=== PATIENT | male | born 1950 | race Hispanic/Latino ===

== ENCOUNTER → 2020-11-13 | Outpatient (CLI) | payer MEDICARE ==
[~2020-11-13] MED LIST: IOPAMIDOL 370 MG/ML 200 ML INFUS..BTL INJ ONE; SODIUM CHLORIDE 0.9% 250ML 250 ML ONE
[2020-11-13 10:44] LABS: BLOOD UREA NITROGEN 15 mg/dL (7-26); BUN/CREATININE RATIO 16 (6-25); CREATININE, SERUM 0.96 mg/dL (0.72-1.25); EST GLOMERULAR FILTRATION RATE > 60 ML/MIN (60-)
== END ==
LOC: CT 09:47
PROVIDERS: ATTEND Urology
DX: R31.21 Asymptomatic microscopic hematuria (principal)
CPT/HCPCS: 36415; 74178; 82565; 84520; J7050; Q9967

== ENCOUNTER 2025-03-15 09:02 | Inpatient (IN) | payer MEDICARE ==
[2025-03-13 14:58] LABS: BASOPHILS % 0.6 % (0.0-1.0); EOSINOPHILS % 2.5 % (0.0-6.0); LYMPHOCYTES % 31.4 % (18.0-39.1); MONOCYTES % 9.8 % (4.4-11.3); NEUTROPHILS % 55.6 % (38.7-80.0); RED CELL DISTRIBUTION WIDTH 12.9 % (11.7-14.4)
[2025-03-13 15:17] LABS: EST GLOMERULAR FILTRATION RATE 73.0 ML/MIN (>=60)
[~2025-03-15] VITALS: Ht 175.3 cm; Wt 81.6 kg
[~2025-03-15 09:02] MED LIST changes: +AMLODIPINE BESYL5 MG PO; +AMOX TR-K CLV1 EAC1 PO; +ATORVASTATIN CA20 MG PO; +CETIRIZINE HCL10 MG; +D3-5000125 MCG; +FENOFIBRATE67 MG; +FINASTERIDE5 MG PO; +FLOMAX0.4 MG PO; -IOPAMIDOL 370 MG/ML 200 ML INFUS..BTL INJ ONE; +METFORMIN HCL500 MG PO; -SODIUM CHLORIDE 0.9% 250ML 250 ML ONE; +TRICOR48 MG PO; +VITAMIN C1000 MG PO; +XARELTO20 MG PO
[2025-03-15] MEDS ORDERED: LIDOCAINE HCL 2% LOCAL INJ 5 ML SDV VIAL INJ ONE (09:25)
[2025-03-15] MEDS ORDERED: FENTANYL CITRATE/PF 100MCG/2 ML INJ ONE (09:25)
[2025-03-15] MEDS ORDERED: PROPOFOL IV EMULSION 10 MG/ML 20 ML VIAL ONE (09:25)
[2025-03-15] MEDS ORDERED: ONDANSETRON HCL INJ 2MG/ML 2ML 2 MG/ML VIAL ONE (09:25)
[2025-03-15] MEDS ORDERED: ROCURONIUM BROMIDE 1 ML IV ONE ×2 (09:25→11:01)
[2025-03-15] MEDS ORDERED: KETOROLAC TROMETHAMINE 30 MG/ML VIAL ONE (09:33)
[2025-03-15] MEDS: SODIUM CHLORIDE 0.9% 1000ML 1,000 ML ONE ×2 (10:06→17:19)
[2025-03-15] MEDS: GENTAMICIN 80MG/NS 100 ML 200 ML IV ONE (10:08)
[2025-03-15] MEDS: LEVOFLOXACIN 500MG/D5W 100ML 100 ML IV ONE (10:08)
[2025-03-15] MEDS ORDERED: GLYCOPYRROLATE INJ 0.2 MG/ML VIAL ONE (10:38)
[2025-03-15] MEDS ORDERED: DIPHENHYDRAMINE HCL INJ 50 MG/ML VIAL IM PRN (10:45)
[2025-03-15] MEDS ORDERED: ONDANSETRON HCL INJ 2MG/ML 2ML 2 MG/ML VIAL IV PRN (10:45)
[2025-03-15] MEDS ORDERED: ACETAMINOPHEN 1000 MG/100 ML IV PRN (10:45)
[2025-03-15] MEDS ORDERED: SUGAMMADEX SODIUM 200 MG/2 ML VIAL IV ONE (11:50)
[2025-03-15] MEDS: GENTAMICIN 80MG/NS 100 ML 100 ML IV SCH ×2 (14:00→18:17)
[2025-03-15 15:44] LABS: BASOPHILS % 0.2 % (0.0-1.0); EOSINOPHILS % 0.2 % (0.0-6.0); LYMPHOCYTES % 8.5 % (18.0-39.1); MONOCYTES % 5.4 % (4.4-11.3); NEUTROPHILS % 85.4 % (38.7-80.0); RED CELL DISTRIBUTION WIDTH 13.0 % (11.7-14.4)
[2025-03-15 16:02] VITALS: BP 131/67; PULSE 70; RESP 19; TEMP 97.6; O2SAT 96
[2025-03-15 16:13] LABS: EST GLOMERULAR FILTRATION RATE 91.0 ML/MIN (>=60)
[2025-03-15] MEDS: SENNA-S TABLET PO SCH (16:38)
[2025-03-15] MEDS: PHENAZOPYRIDINE HCL 100 MG TAB PO PRN (16:38)
[2025-03-15] MEDS: SODIUM CHLORIDE 0.9% 1000ML 1,000 ML IV SCH (17:19)
[2025-03-15] MEDS: TAMSULOSIN HCL 0.4 MG CAP PO SCH (17:20)
[2025-03-15 17:23] VITALS: PULSE 70; RESP 18; O2SAT 96
[2025-03-15] MEDS ORDERED: GENTAMICIN 80MG/NS 100 ML 100 ML IV SCH (18:00)
[2025-03-15 20:00] VITALS: BP 133/67; PULSE 72; RESP 17; TEMP 98.2; O2SAT 95
[2025-03-15 20:15] VITALS: PULSE 77; RESP 18; O2SAT 96
[2025-03-15] MEDS: ACETAMINOPHEN/CODEINE 300MG - 30MG TAB PO PRN (20:24)
[2025-03-15] MEDS: ATORVASTATIN 20 MG TAB PO SCH (20:24)
[2025-03-15] MEDS: HYDROCODONE/APAP 10MG-325MG TAB PO PRN (22:41)
[2025-03-16] VITALS (10 sets, daily range): BP systolic 98–123; BP diastolic 50–67; PULSE 71–83; RESP 17–18; TEMP 98.1–99.2; O2SAT 95–100
[2025-03-16 06:07] LABS: BASOPHILS % 0.3 % (0.0-1.0); EOSINOPHILS % 0.5 % (0.0-6.0); LYMPHOCYTES % 11.7 % (18.0-39.1); MONOCYTES % 8.0 % (4.4-11.3); NEUTROPHILS % 79.2 % (38.7-80.0); RED CELL DISTRIBUTION WIDTH 13.1 % (11.7-14.4)
[2025-03-16 06:36] LABS: EST GLOMERULAR FILTRATION RATE 90.0 ML/MIN (>=60)
[2025-03-16] MEDS: AMLODIPINE BESYLATE 5 MG TAB PO SCH (08:25)
[2025-03-16] MEDS: FINASTERIDE 5 MG TAB PO SCH (08:26)
[2025-03-16] MEDS: LEVOFLOXACIN 500MG/D5W 100ML 100 ML IV SCH (09:36)
[2025-03-17] VITALS (11 sets, daily range): BP systolic 112–144; BP diastolic 64–75; PULSE 78–94; RESP 16–18; TEMP 97.9–99.3; O2SAT 92–100
[2025-03-17 06:17] LABS: RED CELL DISTRIBUTION WIDTH 12.8 % (11.7-14.4)
[2025-03-17 06:18] LABS: BASOPHILS % 0.3 % (0.0-1.0); EOSINOPHILS % 1.0 % (0.0-6.0); LYMPHOCYTES % 13.2 % (18.0-39.1); MONOCYTES % 7.9 % (4.4-11.3); NEUTROPHILS % 77.3 % (38.7-80.0)
[2025-03-17 06:28] LABS: EST GLOMERULAR FILTRATION RATE 92.0 ML/MIN (>=60)
[2025-03-18] VITALS: BP 120/72; PULSE 74; RESP 18; TEMP 98.6; O2SAT 99
[2025-03-18 04:00] VITALS: BP 128/62; PULSE 74; RESP 18; TEMP 98.6; O2SAT 96
[2025-03-18 06:44] LABS: BASOPHILS % 0.3 % (0.0-1.0); EOSINOPHILS % 0.8 % (0.0-6.0); LYMPHOCYTES % 14.4 % (18.0-39.1); MONOCYTES % 10.5 % (4.4-11.3); NEUTROPHILS % 73.7 % (38.7-80.0); RED CELL DISTRIBUTION WIDTH 12.7 % (11.7-14.4)
[2025-03-18 07:17] LABS: EST GLOMERULAR FILTRATION RATE 91.0 ML/MIN (>=60)
[2025-03-18 07:21] VITALS: PULSE 80; RESP 18; O2SAT 92
[2025-03-18 08:06] VITALS: BP 128/64; PULSE 75; RESP 18; TEMP 97.9; O2SAT 100
[2025-03-18 08:27] VITALS: BP 128/64; PULSE 75; RESP 18; TEMP 97.9; O2SAT 100
== END 2025-03-18 11:15 | disposition home or self-care (01) | DRG 713 ==
LOC: OR 09:02 → PACU V 10:41 → MED/SURG 15:50
PROVIDERS: ADMIT Internal Medicine; ATTEND Internal Medicine
PROC: 0T7D8ZZ Dilation of Urethra, Via Natural or Artificial Opening Endoscopic (ICD-10-PCS; 2025-03-15)
PROC: BT141ZZ Fluoroscopy of Kidneys, Ureters and Bladder using Low Osmolar Contrast (ICD-10-PCS; 2025-03-15)
PROC: 0T9B70Z Drainage of Bladder with Drainage Device, Via Natural or Artificial Opening (ICD-10-PCS; 2025-03-15)
PROC: 0VB08ZZ Excision of Prostate, Via Natural or Artificial Opening Endoscopic (ICD-10-PCS; principal; 2025-03-15 10:28)
DX: N40.1 Benign prostatic hyperplasia with lower urinary tract symptoms (principal); N13.8 Other obstructive and reflux uropathy; E11.9 Type 2 diabetes mellitus without complications; I10 Essential (primary) hypertension; R33.8 Other retention of urine; R31.0 Gross hematuria; N35.916 Unspecified urethral stricture, male, overlapping sites; Z79.01 Long term (current) use of anticoagulants; Z79.84 Long term (current) use of oral hypoglycemic drugs; Z87.440 Personal history of urinary (tract) infections
CPT/HCPCS: 36415; 71046; 74420; 80048; 82948; 83735; 85025; 93005; 94799; C1758; J1580; J1885; J1956; J2003; J2405; J7030

== ENCOUNTER → 2025-05-25 | Outpatient (REF) | payer MEDICARE | LOC: US 11:44 | PROVIDERS: ATTEND Urology | DX: N45.3 Epididymo-orchitis (principal); N43.40 Spermatocele of epididymis, unspecified; N47.6 Balanoposthitis | CPT/HCPCS: 76870; 93976 ==